=== PATIENT | female | born 1985 | race Caucasian/White ===

== ENCOUNTER 2024-03-19 09:08 | Outpatient (CLI) | payer OTHER | END 2024-03-19 09:10 | disposition home or self-care (01) | LOC: SONOGRAMA 09:08 | DX: R10.2 Pelvic and perineal pain (principal) ==

== ENCOUNTER 2024-12-02 09:04 | Outpatient (CLI) | payer OTHER | END 2024-12-02 09:05 | disposition home or self-care (01) | LOC: SONOGRAMA 09:04 | PROVIDERS: ATTEND Student in an Organized Health Care Education/Training Program | DX: R10.12 Left upper quadrant pain (principal) ==

== ENCOUNTER 2024-12-02 10:11 | Outpatient (CLI) | payer OTHER ==
[2024-12-02 10:53] LABS: BASO % 1.1 % (0.1-1.2); EOS # 0.09 (0.04-0.54); EOS % 1.7 % (0.7-7.0); LYMPH # 1.39 (1.18-3.74); LYMPH % 26.0 % (19.3-53.1); MEAN PLATELET VOLUME 8.80 fl (9.4-12.4); MONO # 0.42 (0.24-0.82); MONO % 7.9 % (4.7-12.5); NEUT # 3.37 (1.56-6.13); NEUT % 63.1 % (34.0-71.1); RED CELL DISTRIBUTION WIDTH 13.0 % (11.6-14.4)
[2024-12-02 11:26] LABS: ALT/SGPT 21.0 U/L (12-78); AST/SGOT 16.0 U/L (15-37); BILIRUBIN TOTAL 0.43 mg/dL (0.3-1.2); BUN CREA RATIO 12.0 (7.0-25.0); CREATININE SERUM 0.67 mg/dL (0.55-1.02); GFR 97.99; GLOBULINA 3.3 G/DL (2.4-3.5); GLUCOSE FASTING 99.0 mg/dL (65-100); OSMOLALITY SERUM 280.0 MOSM/KG (275-295)
== END 2024-12-02 10:16 | disposition home or self-care (01) ==
LOC: LAB 10:11
DX: R10.12 Left upper quadrant pain (principal)